=== PATIENT | male | born 1990 | race Caucasian/White ===

== ENCOUNTER 2016-11-26 11:06 | Emergency (ER) | payer SELFPAY ==
[~2016-11-26] VITALS: Ht 177.8 cm; Wt 100.0 kg
[~2016-11-26 11:06] MED LIST: AMOX500T PO; GUAI100S6 PO; Z.0.NO CURRENT MEDS
[2016-11-26 11:09] VITALS: BP 180/104; PULSE 98; RESP 14; TEMP 98.4; O2SAT 100
--- NOTE | 2016-11-26 11:59 | PD ---
HPI Chief Complaint: Injury Time Seen by Provider: 11:53 Travel History International Travel<30 days: No Contact w/Intl Traveler<30days: No Traveled to known affect area: No History of Present Illness HPI 26-year-old male presents to the emergency department complaint of right ankle pain and swelling since yesterday after playing basketball and injuring the right ankle. 49 went up for shot and came down and twisted his ankle. Denies paresthesias, loss of sensation to the affected extremity. Reports decreased range of motion secondary to pain and swelling. Has not been able to bear weight or ambulate on the affected extremity secondary to pain. Took ibuprofen with some relief of pain. Denies fever, chills, nausea, vomiting. Pain is aggravated with movement, walking, palpation. Pain is decreased while at rest. No known allergies. Denies significant past medical history. Patient's blood pressures elevated in the ER and he denies history of high blood pressure and is not currently on medications. Denies chest pain, shortness of breath, abdominal pain, nausea, vomiting, headache, diaphoresis, change in vision, confusion. Does not have primary care provider. No other modifying factors or associated signs and symptoms. [facility] Past Medical History Medical History: Denies Significant Hx Social History Alcohol Use: No Tobacco Use: No Substance Use: No Allergies-Medications (Allergen,Severity, Reaction): Coded Allergies: No Known Allergies (Verified , 11/26/16) Reported Meds & Prescriptions Reported Meds & Active Scripts Active Ibuprofen 800 Mg Tab 800 Mg PO Q6HR PRN Review of Systems Except as stated in HPI: all other systems reviewed are Neg Physical Exam Narrative GENERAL: Well-nourished, well-developed male patient, in no acute distress SKIN: Warm and dry. HEAD: Atraumatic. Normocephalic. EYES: Pupils equal and round. No scleral icterus. No injection or drainage. ENT: Mucosa pink and moist. Airway patent. NECK: Trachea midline. CARDIOVASCULAR: Regular rate. RESPIRATORY: No accessory muscle use. MUSCULOSKELETAL: Right ankle ankle with point tenderness to the medial and lateral malleolus with palpation; ankle edematous and without erythema or ecchymosis; no obvious deformity. Right lower extremity is supple and non- tense with 2+ pedal pulse and sensory intact and without erythema or edema. No obvious deformities. No clubbing. No cyanosis. NEUROLOGICAL: Awake and alert. Oriented 3. No obvious cranial nerve deficits. Motor grossly within normal limits. Normal speech. PSYCHIATRIC: Appropriate mood and affect; insight and judgment normal. Data Data Last Documented VS Vital Signs Date Time Temp Pulse Resp B/P Pulse Ox O2 Delivery O2 Flow Rate FiO2 11/26/16 11:09 98.4 98 14 180/104 100 Room Air Orders Ankle, Complete ([id number]) (11/26/16 11:49) Ice/Cold Pack (11/26/16 11:49) Ketorolac Inj (Toradol Inj) (11/26/16 12:15) Splint Or Brace Apply/Monitor (11/26/16 13:26) Crutches (11/26/16 13:26) Brace Ankle Stirrup (11/26/16 ) MDM Medical Decision Making Medical Screen Exam Complete: Yes Emergency Medical Condition: Yes Medical Record Reviewed: Yes Differential Diagnosis Ankle sprain, ankle fracture, ankle dislocation Narrative Course 26-year-old male with right ankle injury. Right lower extremity supple and nontender 2+ pedal pulse and sensory intact without erythema or edema. Patient' s blood pressure is elevated in the ER. Denies history of hypertension and is on medications. Denies symptoms of hypertension at this time. Toradol administered in the ER. Right ankle x-ray ordered. 1323: Right ankle x-ray concludes Soft tissue swelling of the lateral malleolus with no acute fracture or malalignment; Irregularity of the medial malleolus which may be related to remote trauma. [place] bandage and ankle stirrup splint applied. Crutches provided for support. Instructed patient to follow up outpatient if symptoms persist greater than 7-10 days. Patient is medically cleared and stable for discharge. Discussed reasons to return to the emergency department. Instructed patient to follow up with primary care provider. Patient agrees with treatment plan. The patients vital signs are stable and the patient is stable for outpatient follow-up and treatment. Patient discharged home, stable and in no acute distress. Diagnosis Primary Impression: Right ankle sprain Qualified Code: S93.401A - Sprain of right ankle, unspecified ligament, initial encounter Referrals: Primary Care Physician Patient Instructions: Ankle Sprain (ED), Ankle Stirrup Splint (ED), Crutch Instructions (ED), General Instructions Departure Forms: Tests/Procedures, Work Release Enter return to work date: Dec 02, 2016 Additional Instructions: Ibuprofen or Tylenol as directed and as needed for pain and inflammation Rest, ice, compress, and elevate extremity to decrease pain and inflammation Ankle Brace for support Crutches for support Avoid aggravating activity; increase activity as tolerated Follow-up with primary care provider Return to the emergency department immediately with worsening symptoms Med/Other Pt SpecificInfo: Prescription(s) given Scripts Ibuprofen 800 Mg [id number] Mg PO Q6HR PRN (PAIN) #30 TAB Ref 0 Prov:Elaine Covington 11/26/16 Disposition: 01 DISCHARGE HOME Condition: Stable Elaine Covington Nov 26, 2016 11:59
[2016-11-26] MEDS ORDERED: KETOROLAC TROMETHAMINE 60 MG/2 ML (IM) VIAL IM ONE (12:15)
--- NOTE | 2016-11-26 13:09 | RADRPT ---
EXAM DATE/TIME: 11/26/2016 12:34 [facility] COMPARISON: No previous studies available for comparison. INDICATIONS : Rolled right ankle last evening, pain and swelling 360 degrees around ankle. Pain is most severe on m edial side MEDICAL HISTORY : None. SURGICAL HISTORY : None. ENCOUNTER: Initial ACUITY: 1 day PAIN SCORE: 8/10 LOCATION: Right ankle FINDINGS: Three view exam was performed of the right ankle. The bony structures are in normal alignment. No e vidence of acute fracture or dislocation. There is mild irregularity of the medial malleolus which ma y be related to remote trauma. There is soft tissue swelling lateral malleolus.. The ankle mortise i s intact. No radiopaque foreign bodies are seen. Bony mineralization is normal. CONCLUSION: 1. Soft tissue swelling of the lateral malleolus with no acute fracture or malalignment. 2. Irregularity of the medial malleolus which may be related to remote trauma. Adal Pineda MD on November 26, 2016 at 13:07 Board Certified Radiologist. This report was verified electronically.
[2016-11-26] MEDS ORDERED: IBUP800T23 PO (13:25)
== END 2016-11-26 14:05 | disposition home or self-care (01) ==
LOC: NEPB 11:06
DX: S93.401A Sprain of unspecified ligament of right ankle, initial encounter (principal); X50.1XXA Overexertion from prolonged static or awkward postures, initial encounter; Y93.67 Activity, basketball
CPT/HCPCS: 73610; 96374; 99283; E0113; J1885; L1906